=== PATIENT | male | born 1970 | race Caucasian/White ===

== ENCOUNTER 2019-06-30 11:04 | Emergency (ER) | payer BC ==
[~2019-06-30] VITALS: Ht 170.2 cm; Wt 72.6 kg
--- NOTE | 2019-06-30 11:10 | NUR ---
AAOX3, C/O L SIDED CHEST TIGHTNESS FOR WEEKS, NON RADIATING, WORST SINCE THIS MORNING AT WORK. RR IS EVEN AND UNLABORED WITH NAD NOTED. SKIN IS WARM AND DRY. PLACED ON MONITOR AND HOSPITAL GOWN. DR ROSEN AT BS FOR EVAL.
[2019-06-30 11:18] LABS: BASOPHILS % (AUTO) 0.8 % (0.0-2.0); HEMATOCRIT 49 % (39-51); HEMOGLOBIN 16.7 g/dL (13.5-17.5); LYMPHOCYTES # (AUTO) 2.1 /CMM (0.8-4.8); LYMPHOCYTES % (AUTO) 41.3 % (20.0-44.0); MEAN CORPUSCULAR HGB CONC 34 g/dl (31.0-36.0); MEAN CORPUSCULAR VOLUME 92 fL (80-96); MONOCYTES # (AUTO) 0.4 /CMM (0.1-1.30); MONOCYTES % (AUTO) 7.9 % (2.0-12.0); NEUTROPHILS # (AUTO) 2.5 /CMM (1.8-8.9); PLATELET COUNT (AUTO) 227 /CMM (150-450); RED BLOOD CELL COUNT(AUTO) 5.35 MIL/uL (4.5-6.0); WHITE BLOOD COUNT (AUTO) 5.1 K/uL (4.3-11.0)
[2019-06-30 11:32] LABS: CALCIUM, SERUM 9.7 mg/dL (8.5-10.1); CARBON DIOXIDE 31 mmol/L (21-32); CHLORIDE 101 mmol/L (98-107); GLUCOSE 103 mg/dL (74-106); POTASSIUM 3.5 mmol/L (3.5-5.1); SODIUM SERUM 141 mmol/L (136-145); UREA NITROGEN, BLOOD 15 mg/dL (7-18)
--- NOTE | 2019-06-30 11:45 | NUR ---
Dr Nathan at an update and re-eval.
[2019-06-30 11:56] VITALS: BP 138/82
--- NOTE | 2019-06-30 11:56 | NUR ---
Patient discharged to home in stable condition. Written and verbal after care instructions given. Patient verbalizes understanding of instruction.IV removed. Catheter intact and site benign. Pressure and 4x4 applied to site. No bleeding noted.
--- NOTE | 2019-06-30 12:45 | NUR ---
unable to depart due to meditech issues
--- NOTE | 2019-06-30 12:45 | NUR ---
unable to depart due to meditech issues
== END 2019-06-30 11:56 | disposition home or self-care (01) ==
LOC: ER 11:04
DX: R07.89 Other chest pain (principal)
CPT/HCPCS: 36415; 71045-TC; 80048-TC; 84484-TC; 85025-TC

== ENCOUNTER 2023-05-17 05:01 | Emergency (ER) | payer BC ==
[~2023-05-17] VITALS: Ht 170.2 cm; Wt 72.6 kg
[2023-05-17] MEDS ORDERED: ACETAMINOPHEN ES 500 MG TABLET PO ONE (05:30)
[2023-05-17] MEDS ORDERED: IV NS 0.9% 1,000 ML BAG IV ONE (05:30)
[2023-05-17] MEDS ORDERED: CEFEPIME 1 GM in IV D5W 50 ML IV ONE (05:30)
[2023-05-17] MEDS ORDERED: VANCOMYCIN 1 GM in IV D5W 250 ML IV ONE (05:30)
[2023-05-17] MEDS ORDERED: ACETAMINOPHEN ES 500 MG TABLET ONE (05:36)
[2023-05-17] MEDS ORDERED: CEFEPIME 1 GM VIAL ONE (05:51)
[2023-05-17 06:03] LABS: APPEARANCE,URINE CLEAR (CLEAR); BASOPHILS % (AUTO) 0.1 % (0.0-2.0); BILIRUBIN,URINE NEGATIVE (NEGATIVE); BLOOD, URINE TRACE-INTA Ery/uL (NEGATIVE); COLOR,URINE YELLOW (YELLOW); EOSINOPHILS % (AUTO) 0.4 % (0.0-6.0); HEMATOCRIT 42 % (39-51); HEMOGLOBIN 14.6 g/dL (13.5-17.5); KETONES,URINE NEGATIVE (NEGATIVE); LEUKOCYTE ESTERASE ,URINE NEGATIVE (NEGATIVE); LYMPHOCYTES # (AUTO) 0.7 K/uL (0.8-4.8); MEAN CORPUSCULAR HEMOGLOBIN 33 PG (26.0-33.0); MEAN CORPUSCULAR HGB CONC 35 g/dl (31.0-36.0); MEAN CORPUSCULAR VOLUME 94 fL (80-96); NEUTROPHILS # (AUTO) 8.8 K/uL (1.8-8.9); NEUTROPHILS % (AUTO) 83.5 % (43.0-81.0); NITRITE, URINE NEGATIVE (NEGATIVE); PH,URINE 5.5 (5.0-8.0); PLATELET COUNT (AUTO) 197 K/uL (150-450); PROTEIN,URINE NEGATIVE (NEGATIVE); RED BLOOD CELL COUNT(AUTO) 4.46 MIL/uL (4.5-6.0); RED CELL DISTRIBUTION WIDTH 12.4 % (11.5-15.0); UGLUCOSE NEGATIVE (NEGATIVE); UROBILINOGEN,URINE 0.2 EU/dL (0.2); WHITE BLOOD COUNT (AUTO) 10.6 K/uL (4.3-11.0)
[2023-05-17 06:12] LABS: INR 1.02 (0.91-1.10); PARTIAL THROMBOPLASTIN TIME 27.6 SEC (24.3-34.3); PROTHROMBIN TIME 10.8 SECS (9.2-11.1)
[2023-05-17] MEDS ORDERED: VANCOMYCIN 1 GM /D5W 250 ML PB IV ONE (06:13)
[2023-05-17] MEDS ORDERED: LOPE2TAB25 PO (06:23)
[2023-05-17] MEDS ORDERED: CIPR-262 PO (06:23)
[2023-05-17 06:25] LABS: ALANINE AMINOTRANSFERASE 42 U/L (12-78); ALBUMIN 4.1 g/dL (3.4-5.0); ALKALINE PHOSPHATASE 102 U/L (46-116); ASPARTATE AMINOTRANSFERASE 23 U/L (15-37); BILIRUBIN,DIRECT 0.3 mg/dL (0.0-0.2); BILIRUBIN,TOTAL 1.7 mg/dL (0.2-1.0); CALCIUM, SERUM 9.3 mg/dL (8.5-10.1); CARBON DIOXIDE 26 mmol/L (21-32); CHLORIDE 102 mmol/L (98-107); GLUCOSE 120 mg/dL (74-106); POTASSIUM 3.8 mmol/L (3.5-5.1); SODIUM SERUM 135 mmol/L (136-145); UREA NITROGEN, BLOOD 12 mg/dL (7-18)
[2023-05-17 07:24] LABS: LACTIC ACID 2.1 mmol/L (0.4-2.0)
[2023-05-17 07:45] VITALS: BP 129/88; TEMP 100.4; O2SAT 95
[2023-05-17 08:05] LABS: ADD URINE CULTURE NO; BACTERIA,URINE None seen /HPF (None Seen); RBC,URINE NONE SEEN /HPF (0-2); SQUAMOUS EPITHELIAL CELL,UR Rare /HPF (None Seen); WBC,URINE 0-2 /HPF (0-3)
[2023-05-18 23:06] LABS: CHLAMYDIA TRACHOMATIS NAA Negative (Negative); NEISSERIA GONORRHOEAE NAA Negative (Negative)
== END 2023-05-17 07:46 | disposition home or self-care (01) ==
LOC: ER 05:16
DX: A09 Infectious gastroenteritis and colitis, unspecified (principal); Z79.899 Other long term (current) drug therapy; Z20.822 Contact with and (suspected) exposure to COVID-19; Z60.2 Problems related to living alone
CPT/HCPCS: 99284; 96365; 96367; 87426; 93005; 84145; 85025; 80048; 87040 ×2; 87086; 83605; 80076; 81001; 36415; 85730; 87491; 87591; J3370 ×2; J7060 ×2; J7030; A4223; J0692 ×2; C9803